=== PATIENT | female | born 1995 | race Caucasian/White ===

== ENCOUNTER 2016-11-25 11:29 | Emergency (ER) | payer OTHER, MEDICAID ==
[~2016-11-25] VITALS: Ht 167.6 cm; Wt 82.7 kg
[2016-11-25 11:34] VITALS: TEMP 98
[2016-11-25] MEDS ORDERED: PRENATAL PO (11:37)
[2016-11-25] MEDS ORDERED: EZFE 200200 MG PO (11:38)
[2016-11-25] MEDS ORDERED: PRILOSEC10 MG PO (11:38)
[2016-11-25 12:54] LABS: BASO % 0.2 % (0.0-2.0); EOS # 0.1 (0.0-0.7); EOS % 0.9 % (0-4.0); GRAN # 9.8 (1.4-6.5); GRAN % 78.6 % (42.2-75.2); LYMPH # 1.4 (1.2-3.4); LYMPH % 11.5 % (20.0-51.0); MEAN CELL VOLUME 93 fl (80.0-95.0); MEAN CORPUSCULAR HGB CONC 34 g/dl (33.0-37.0); MEAN PLATELET VOLUME 10.5 fl (7.4-10.4); MONO % 7.8 % (1.7-9.3); PLATELET COUNT 234 K/mm3 (130-400); RED BLOOD COUNT 3.52 M/mm3 (4.10-5.30); REDCELL DISTRIBUTION WIDTH-CV 13.2 % (11.5-14.5); WHITE BLOOD COUNT 12.5 K/mm3 (4.8-10.8)
[2016-11-25 12:55] LABS: HEMATOCRIT 32.8 % (35.0-45.0); HEMOGLOBIN 11.1 g/dl (12.0-15.0); MEAN CORPUSCULAR HEMOGLOBIN 32 pg (26.0-32.0)
[2016-11-25 13:11] LABS: ADJUSTED CALCIUM 10.1 mg/dL (8.4-10.2); ALBUMIN 3.7 gm/dL (3.5-5.0); BILIRUBIN,TOTAL 0.3 mg/dL (0.0-1.0); CALCIUM 9.9 mg/dL (8.4-10.2); CREATININE, serum 0.61 mg/dL (0.52-1.25); POTASSIUM 3.9 mmol/L (3.4-5.0); TOTAL PROTEIN 6.7 gm/dL (6.4-8.2)
[2016-11-25 13:43] LABS: PH 7 (5-8); URINE APPEARANCE Hazy; URINE BACTERIA Rare /hpf; URINE BILIRUBIN Negative (NEGATIVE); URINE BLOOD Negative (NEGATIVE); URINE COLOR Yellow; URINE GLUCOSE Negative (NEGATIVE); URINE KETONE Negative (NEGATIVE); URINE RBC 0-2 /hpf; URINE UROBILINOGEN Negative (NEGATIVE)
[2016-11-25] MEDS ORDERED: MACROBID 1100 MG/CAP PO (14:40)
[2016-11-25 15:04] VITALS: BP 123/74; PULSE 85
== END 2016-11-25 15:04 | disposition home or self-care (01) ==
LOC: COL.ER 11:29
PROVIDERS: Emergency Medicine
DX: O99.613 Diseases of the digestive system complicating pregnancy, third trimester (principal); K21.9 Gastro-esophageal reflux disease without esophagitis; O23.43 Unspecified infection of urinary tract in pregnancy, third trimester; Z3A.34 34 weeks gestation of pregnancy

== ENCOUNTER 2016-12-05 20:44 | Outpatient (CLI) | payer OTHER, MEDICAID ==
[~2016-12-05] VITALS: Ht 167.6 cm; Wt 85.0 kg
[~2016-12-05 20:44] MED LIST: EZFE 200200 MG PO; MACROBID 1100 MG/CAP PO; PRENATAL PO; PRILOSEC10 MG PO
[2016-12-05 21:30] VITALS: BP 128/79; PULSE 95; TEMP 98.3
[2016-12-05 21:37] VITALS: BP 121/72; PULSE 116; TEMP 98.3
[2016-12-05 22:00] VITALS: BP 127/72; PULSE 86
[2016-12-05 22:30] VITALS: BP 125/70; PULSE 97
[2016-12-05 22:56] LABS: PH 7 (5-8); SQUAMOUS EPITHELIAL 0-2 /hpf; URINE APPEARANCE Clear; URINE BACTERIA None Seen /hpf; URINE BILIRUBIN Negative (NEGATIVE); URINE BLOOD Negative (NEGATIVE); URINE COLOR Yellow; URINE GLUCOSE Negative (NEGATIVE); URINE KETONE Negative (NEGATIVE); URINE RBC 0-2 /hpf; URINE UROBILINOGEN Negative (NEGATIVE); URINE WBC 0-2 /hpf
[2016-12-05 23:00] VITALS: BP 126/72; PULSE 85
[2016-12-05 23:25] VITALS: BP 123/65; PULSE 95
== END 2016-12-05 23:35 | disposition home or self-care (01) ==
LOC: LDRO
PROVIDERS: Obstetrics & Gynecology
DX: O62.9 Abnormality of forces of labor, unspecified (principal); Z3A.35 35 weeks gestation of pregnancy

== ENCOUNTER 2016-12-21 04:45 | Inpatient (IN) | payer OTHER, MEDICAID ==
[2016-12-21] VITALS (29 sets, daily range): BP systolic 129–165; BP diastolic 71–104; PULSE 71–107; TEMP 97.4–98.7
[~2016-12-21] VITALS: Ht 167.6 cm; Wt 87.3 kg
[2016-12-21] MEDS ORDERED: MOTRIN 800800 MG/TAB PO (06:52)
[2016-12-21] MEDS ORDERED: PERCOCET 325 MG1 TA2 PO (06:52)
[2016-12-21 07:11] LABS: BASO % 0.3 % (0.0-2.0); EOS # 0.2 (0.0-0.7); EOS % 1.8 % (0-4.0); GRAN # 6.7 (1.4-6.5); GRAN % 69.4 % (42.2-75.2); LYMPH % 20.5 % (20.0-51.0); MEAN CELL VOLUME 92 fl (80.0-95.0); MEAN CORPUSCULAR HGB CONC 34 g/dl (33.0-37.0); MEAN PLATELET VOLUME 11.4 fl (7.4-10.4); MONO # 0.7 (0.1-0.6); MONO % 7.2 % (1.7-9.3); PLATELET COUNT 234 K/mm3 (130-400); REDCELL DISTRIBUTION WIDTH-CV 12.8 % (11.5-14.5); WHITE BLOOD COUNT 9.7 K/mm3 (4.8-10.8)
[2016-12-21 07:19] LABS: HEMATOCRIT 33.1 % (35.0-45.0); HEMOGLOBIN 11.3 g/dl (12.0-15.0); MEAN CORPUSCULAR HEMOGLOBIN 31 pg (26.0-32.0)
[2016-12-22 08:26] VITALS: BP 142/92; PULSE 85; TEMP 97.2
[2016-12-22 15:54] VITALS: BP 142/78; PULSE 70; TEMP 98.1
[2016-12-22 22:35] VITALS: BP 139/92; PULSE 101; TEMP 98.3
[2016-12-23 07:30] VITALS: BP 138/76; PULSE 80; TEMP 98.1
== END 2016-12-23 12:05 | disposition home or self-care (01) | DRG 775 ==
LOC: LDRO 04:45 → OB 05:30 → LDR 05:30 → OB 13:45
PROVIDERS: Obstetrics & Gynecology
PROC: 10E0XZZ Delivery of Products of Conception, External Approach (ICD-10-PCS; principal; 2016-12-21)
PROC: 0KQM0ZZ Repair Perineum Muscle, Open Approach (ICD-10-PCS; 2016-12-21)
DX: O77.0 Labor and delivery complicated by meconium in amniotic fluid (principal); O70.1 Second degree perineal laceration during delivery; O99.02 Anemia complicating childbirth; D64.9 Anemia, unspecified; Z3A.37 37 weeks gestation of pregnancy; Z37.0 Single live birth
CPT/HCPCS: J2795; J7120

== ENCOUNTER → 2016-12-24 | Outpatient (CLI) | payer OTHER, MEDICAID ==
[~2016-12-24] MED LIST changes: +MOTRIN 800800 MG/TAB PO; +PERCOCET 325 MG1 TA2 PO
== END ==
LOC: OLC 13:18
DX: Z39.1 Encounter for care and examination of lactating mother (principal); Z71.89 Other specified counseling

== ENCOUNTER 2017-03-12 12:33 | Emergency (ER) | payer OTHER, MEDICAID ==
[~2017-03-12] VITALS: Ht 167.6 cm; Wt 77.3 kg
[2017-03-12 12:36] VITALS: TEMP 98.1
[2017-03-12 13:37] LABS: BASO % 0.6 % (0.0-2.0); EOS % 0.6 % (0-4.0); GRAN # 4.3 (1.4-6.5); GRAN % 61.7 % (42.2-75.2); HEMATOCRIT 40.1 % (35.0-45.0); HEMOGLOBIN 13.7 g/dl (12.0-15.0); LYMPH # 2.2 (1.2-3.4); MEAN CELL VOLUME 92 fl (80.0-95.0); MEAN CORPUSCULAR HEMOGLOBIN 31 pg (26.0-32.0); MEAN CORPUSCULAR HGB CONC 34 g/dl (33.0-37.0); MEAN PLATELET VOLUME 10.1 fl (7.4-10.4); MONO # 0.4 (0.1-0.6); PLATELET COUNT 292 K/mm3 (130-400); RED BLOOD COUNT 4.38 M/mm3 (4.10-5.30)
[2017-03-12 13:47] LABS: COLLECTION METHOD CLEAN CATCH
[2017-03-12 13:48] LABS: ALBUMIN 4.9 gm/dL (3.5-5.0); BILIRUBIN,TOTAL 0.5 mg/dL (0.0-1.0); CALCIUM 9.7 mg/dL (8.4-10.2); CREATININE, serum 0.94 mg/dL (0.52-1.25); TOTAL PROTEIN 8.1 gm/dL (6.4-8.2)
[2017-03-12 13:54] LABS: PH 6 (5-8); SQUAMOUS EPITHELIAL 0-2 /hpf; URINE APPEARANCE Clear; URINE BACTERIA None Seen /hpf; URINE BILIRUBIN Negative (NEGATIVE); URINE BLOOD Negative (NEGATIVE); URINE COLOR Straw; URINE GLUCOSE Negative (NEGATIVE); URINE KETONE Negative (NEGATIVE); URINE LEUKOCYTE ESTERASE Negative (NEGATIVE); URINE PROTEIN(semi-quant) Negative (NEGATIVE); URINE RBC 0-2 /hpf; URINE UROBILINOGEN Negative (NEGATIVE); URINE WBC 0-2 /hpf
[2017-03-12] MEDS ORDERED: ANTIVERT 25MG25 MG PO (14:52)
[2017-03-12 15:07] VITALS: BP 127/86; PULSE 78
== END 2017-03-12 15:06 | disposition home or self-care (01) ==
LOC: COL.ER 12:33
PROVIDERS: Emergency Medicine
DX: R42 Dizziness and giddiness (principal); Z90.89 Acquired absence of other organs

== ENCOUNTER 2018-09-12 10:06 | Outpatient (CLI) | payer OTHER, MEDICAID ==
[~2018-09-12] VITALS: Ht 167.6 cm; Wt 93.6 kg
[~2018-09-12 10:06] MED LIST changes: +ANTIVERT 25MG25 MG PO
--- NOTE | 2018-09-12 10:15 | NUR ---
Presents to labor and delivery for elevated blood pressure at home. Assessment done, questions offered and answered. Blood pressure 125/83. Will continue to monitor.
[2018-09-12 10:33] VITALS: BP 125/83; PULSE 98; TEMP 98.3
[2018-09-12] MEDS ORDERED: PRENATAL (10:41)
[2018-09-12 11:00] VITALS: BP 138/88; PULSE 101
--- NOTE | 2018-09-12 11:00 | NUR ---
Rests in bed, alert. Denies any needs at this time. Having a few contractions. States they do not cause any pain. Says has been having them.
[2018-09-12 11:15] VITALS: BP 126/76; PULSE 107
[2018-09-12 11:30] VITALS: BP 121/73
--- NOTE | 2018-09-12 11:45 | NUR ---
Discharge instructions given, verbalizes understanding. 1150 Dismissed to home, alert, stable, ambulatory.
== END 2018-09-12 11:50 | disposition home or self-care (01) ==
LOC: LDRO 10:06
DX: O13.3 Gestational [pregnancy-induced] hypertension without significant proteinuria, third trimester (principal); Z3A.38 38 weeks gestation of pregnancy

== ENCOUNTER 2018-09-14 08:33 | Inpatient (IN) | payer OTHER, MEDICAID ==
[~2018-09-14] VITALS: Ht 167.6 cm; Wt 93.6 kg
[2018-09-14] VITALS (41 sets, daily range): BP systolic 105–153; BP diastolic 60–90; PULSE 73–118; TEMP 98.1–99.4
[~2018-09-14 08:33] MED LIST changes: +PRENATAL
--- NOTE | 2018-09-14 08:40 | NUR ---
Pt arrives on unit ambulatory with FOB from office visit with direct orders for admission. G2L1 at 39.4 weeks gestation. Orders for clean catch ua, CBC and CMP. Changed into clean gown. EFM and toco applied. IV started in LH. Labs drawn. LR infusing. Admission assessment completed. Consents signed. Pt oriented to room and updated on POC. Call light within reach. Bed locked in low position. No questions or concerns at this time.
[2018-09-14 09:22] LABS: COLLECTION METHOD CLEAN CATCH
[2018-09-14 09:30] LABS: BASO % 0.3 % (0.0-2.0); EOS % 0.6 % (0-4.0); GRAN # 4.8 (1.4-6.5); GRAN % 69.1 % (42.2-75.2); LYMPH # 1.5 (1.2-3.4); MEAN CELL VOLUME 90 fl (80.0-100.0); MEAN CORPUSCULAR HEMOGLOBIN 30 pg (27.0-31.0); MEAN CORPUSCULAR HGB CONC 34 g/dl (33.0-37.0); MEAN PLATELET VOLUME 11.7 fl (7.4-10.4); MONO # 0.5 (0.1-0.6); MONO % 7.6 % (1.7-9.3); PLATELET COUNT 233 K/mm3 (130-400); RED BLOOD COUNT 3.99 M/mm3 (4.10-5.30); REDCELL DISTRIBUTION WIDTH-CV 13.2 % (11.5-14.5)
[2018-09-14 09:32] LABS: HEMATOCRIT 35.8 % (37.0-47.0)
[2018-09-14 09:35] LABS: MUCOUS Present /lpf; PH 6 (5-8); URINE APPEARANCE Cloudy; URINE BACTERIA Rare /hpf; URINE BILIRUBIN Negative (NEGATIVE); URINE BLOOD Negative (NEGATIVE); URINE COLOR Yellow; URINE GLUCOSE Negative (NEGATIVE); URINE KETONE Negative (NEGATIVE); URINE LEUKOCYTE ESTERASE Trace (NEGATIVE); URINE NITRATE Negative (NEGATIVE); URINE PROTEIN(semi-quant) Negative (NEGATIVE); URINE RBC 0-2 /hpf; URINE UROBILINOGEN Negative (NEGATIVE)
[2018-09-14 09:38] LABS: ALBUMIN 3.7 gm/dL (3.5-5.0); BILIRUBIN,TOTAL 0.3 mg/dL (0.0-1.0); CREATININE, serum 0.65 (0.52-1.25); POTASSIUM 3.9 mmol/L (3.4-5.0)
--- NOTE | 2018-09-14 09:40 | NUR ---
Report from Harsha Jimenez RN and care of patient assumed. RN at bedside to introduce self and review plan of care for induction. Patient agrees and denies questions. Patient reports occasional contractions and occasional "spotty vision". Denies headache or RUQ pain. Dr. Duarte updated on patient by Harsha Jimenez RN. Orders to start Pitocin induction and physician will come perform SVE and assess patient shortly. Pitocin started at 2 mU per protocol and order. Will monitor per protocol. Call light in reach.
--- NOTE | 2018-09-14 11:55 | NUR ---
Patient sitting upright in bed, monitors adjusted.
--- NOTE | 2018-09-14 14:28 | NUR ---
Pt requesting epidural. LR bolus infusing. 1451-Test dose administered by Rolando Calderón CRNA. No adverse effects noted. See anesthesia record. 1455-Pt repositioned WL. Updated on POC. Safety reviewed. No questions or concerns at this time.
[2018-09-14] MEDS ORDERED: MOTRIN 800800 MG/TAB PO (15:10)
--- NOTE | 2018-09-14 15:10 | NUR ---
Patient reports urge to push. SVE by physician /-2. Orders to continue to increase Pitocin at this time. 1515- Jacobson catheter placed. Patient repositioned LL with right leg in stirrup.
--- NOTE | 2018-09-14 17:05 | NUR ---
Patient reports increased pressure. SVE 8-9/90/0 with bloody show noted. Pericare given, patient repositioned RL and enocuraged to notify RN with increased pressure. Dr. Duarte notified, on way to hospital.
[2018-09-15 00:45] VITALS: BP 123/63; PULSE 93; TEMP 98.5
[2018-09-15 04:52] VITALS: BP 103/44; PULSE 69; TEMP 98.2
[2018-09-15 08:50] VITALS: BP 125/76; PULSE 78; TEMP 97.6
--- NOTE | 2018-09-15 10:08 | NUR ---
Initial visit; Parents thanked [employer] for offering congratiulations and God's blessings for the of their son. [employer] thanked family for choosing [facility].
[2018-09-15 12:51] VITALS: BP 117/57; PULSE 61; TEMP 99.4
[2018-09-15 16:32] VITALS: BP 129/74; PULSE 75; TEMP 98.5
[2018-09-15 19:45] VITALS: BP 119/82; PULSE 82; TEMP 98
--- NOTE | 2018-09-16 08:00 | NUR ---
Rests in bed, alert. Denies any needs at this time.
[2018-09-16 08:30] VITALS: BP 139/81; PULSE 75; TEMP 98.2
--- NOTE | 2018-09-16 10:00 | NUR ---
Rests in bed, alert. Denies any needs at this time.
--- NOTE | 2018-09-16 13:00 | NUR ---
Discharge instructions given, verbalizes understanding. 1330 Dismissed to home with instructions.
== END 2018-09-16 13:30 | disposition home or self-care (01) | DRG 807 ==
LOC: LDR 08:33 → OB 08:33
PROVIDERS: ADMIT Obstetrics & Gynecology
PROC: 10E0XZZ Delivery of Products of Conception, External Approach (ICD-10-PCS; principal; 2018-09-14)
PROC: 3E033VJ Introduction of Other Hormone into Peripheral Vein, Percutaneous Approach (ICD-10-PCS; 2018-09-14)
PROC: 10907ZC Drainage of Amniotic Fluid, Therapeutic from Products of Conception, Via Natural or Artificial Opening (ICD-10-PCS; 2018-09-14)
DX: O13.4 Gestational [pregnancy-induced] hypertension without significant proteinuria, complicating childbirth (principal); Z37.0 Single live birth; O99.02 Anemia complicating childbirth; D64.9 Anemia, unspecified; Z3A.38 38 weeks gestation of pregnancy
CPT/HCPCS: J2590; J7120

== ENCOUNTER 2019-06-15 21:02 | Emergency (ER) | payer MEDICAID ==
[~2019-06-15] VITALS: Ht 167.6 cm; Wt 81.8 kg
[2019-06-15 23:15] VITALS: BP 115/68; PULSE 81; TEMP 97.1
== END 2019-06-15 23:15 | disposition home or self-care (01) ==
LOC: COL.ER 21:02
DX: F41.9 Anxiety disorder, unspecified (principal); R51 Headache